=== PATIENT | female | born 2000 | race Caucasian/White ===

== ENCOUNTER 2021-08-10 14:50 | Emergency (ER) | payer OTHER, SELFPAY ==
[2021-08-10 14:55] VITALS: BP 142/87; PULSE 83; RESP 17; TEMP 36.7; O2SAT 98; BMI 34.2
--- NOTE | 2021-08-10 15:25 | ED.URI ---
HPI - URI/Sore Throat <Dilip Hewitt PA-C - Last Filed: 08/10/21 16:19> General Chief Complaint: Upper Respiratory Symptoms Stated Complaint: Needs COVID Test, Exposure Time Seen by Provider: 08/10/21 15:02 Source: patient Mode of arrival: Ambulatory History of Present Illness HPI Narrative: Caprice presents today with her roommate for symptoms of sore throat, runny nose, cough that started 2-3 days ago. She had a positive contact with an individual with COVID a few days prior to symptom onset. She is vaccinated against COVID. She denies any known medical problems. She denies any chest pain, shortness of breath or any other acute concerns or complaints at this time. Related Data Allergies Allergy/AdvReac Type Severity Reaction Status Date / Time No Known Drug Allergies Allergy Verified 08/10/21 15:11 Review of Systems <TANMAY Costa Last Filed: 08/10/21 16:19> Review of Systems Narrative: As per HPI Patient History <TANMAY Costa Last Filed: 08/10/21 16:19> Social History Smoking Status: Never smoker Smoking Status: Never smoker Substance Use Type: does not use Exam <TANMAY Costa Last Filed: 08/10/21 16:19> Narrative Exam Narrative: Exam Narrative: Const General: cooperative, healthy appearing, comfortable, no acute distress, well developed and well groomed Nutritional Appearance: average body habitus Orientation: alert and oriented x3 HENMT Head: normal to inspection and atraumatic Ears: hearing grossly normal bilaterally Nose: external nose normal and nares normal Face and sinus: normal facial exam Neck Neck: normal visual inspection and supple Resp Effort & Inspection: normal respiratory effort, able to speak in complete sentences, no audible wheezes, not labored, no nasal flaring and no respiratory distress Neuro General: alert, oriented x3, gait normal, tone normal and moves all extremities Cognition: normal cognition Speech: speech normal Gait: normal gait Psych Appearance: grossly normal and well kempt Mental Status: mental status grossly normal Speech and Movement: speech and movement normal Mood: congruent mood Affect: normal affect Initial Vital Signs Initial Vital Signs: Vital Signs Temperature 98.1 F 08/10/21 14:55 Pulse Rate 83 08/10/21 14:55 Respiratory Rate 17 08/10/21 14:55 Blood Pressure 142/87 H 08/10/21 14:55 Pulse Oximetry 98 08/10/21 14:55 <Nancy Perla DO - Last Filed: 08/11/21 07:47> Initial Vital Signs Initial Vital Signs: Vital Signs Temperature 98.1 F 08/10/21 14:55 Pulse Rate 83 08/10/21 14:55 Respiratory Rate 17 08/10/21 14:55 Blood Pressure 142/87 H 08/10/21 14:55 Pulse Oximetry 98 08/10/21 14:55 Course <Dilip Hewitt PA-C - Last Filed: 08/10/21 16:19> Orders Ordered: ED Orders 08/10/21 14:58 COVID19 -Nasal swab/Pre-Proc Stat Vital Signs Vital signs: Vital Signs - 8 hr 08/10/21 14:55 Temperature 98.1 F Pulse Rate 83 Respiratory Rate 17 Blood Pressure 142/87 H Pulse Oximetry 98 <DO Toni Valerio Last Filed: 08/11/21 07:47> Orders Ordered: ED Orders 08/10/21 14:58 COVID19 -Nasal swab/Pre-Proc Stat Vital Signs Vital signs: Vital Signs - 8 hr 08/10/21 14:55 Temperature 98.1 F Pulse Rate 83 Respiratory Rate 17 Blood Pressure 142/87 H Pulse Oximetry 98 MDM - URI/Sore Throat <TANMAY Costa Last Filed: 08/10/21 16:19> Lab Data Labs: Lab Results 08/10/21 Range/Units 14:58 SARS-CoV-2 (PCR) Negative (Negative) MDM Narrative Medical decision making narrative: Patient is a young, vaccinated otherwise healthy individual that is positive for COVID. Recommend home isolation at this time and [id number] medications as needed. Return precautions were discussed and patient verbalizes understanding and agreement to the plan. <Nancy Perla DO - Last Filed: 08/11/21 07:47> Lab Data Labs: Lab Results 08/10/21 Range/Units 14:58 SARS-CoV-2 (PCR) Negative (Negative) Discharge Plan Departure Patient Disposition: Home Clinical Impression: Upper respiratory infection, Contact with and (suspected) exposure to covid-19 Instructions: DI for COVID-19 (Suspected or Confirmed ) Activity Restrictions/Additional Instructions: It was nice to me to this afternoon. Please go home and self isolate, following the CDC's guidelines for isolation. Use [id number] medications as needed to help with symptoms. Please return if you develop chest pain, shortness of breath, or have decreased oxygen saturation on room air below 93-94%. Thank you Dilip Hewitt PA-C Referrals: Chu Garcia [Primary Care Provider] - <Nancy Perla DO - Last Filed: 08/11/21 07:47> Cosign ED Attending Neetuature Attestation: I was immediately available in the department for consultation. Documentation has been reviewed.
[2021-08-10 15:33] LABS: COVID19 -Nasal RAPID Negative (Negative)
== END 2021-08-10 15:53 | disposition home or self-care (01) ==
PROVIDERS: Emergency Medicine; Emergency Provider Physician Assistant; PCP Student in an Organized Health Care Education/Training Program
DX: J06.9 Acute upper respiratory infection, unspecified (principal); Z20.822 Contact with and (suspected) exposure to COVID-19
CPT/HCPCS: 87635; 99281; C9803

== ENCOUNTER 2021-08-12 08:00 | Emergency (ER) | payer OTHER, SELFPAY ==
--- NOTE | 2021-08-12 08:24 | ED_ITS ---
HPI - URI/Sore Throat General Chief Complaint: Upper Respiratory Symptoms Stated Complaint: Cough, sore throat, congestion, headache, SOB Time Seen by Provider: 08/12/21 08:05 Source: patient and old records reviewed Mode of arrival: Ambulatory Limitations: no limitations History of Present Illness HPI Narrative: This is a 20-year-old female comes in with cough sore throat, nasal congestion, headache occasional shortness of breath. Patient states she has had 4 days of symptoms. She has been afebrile. She has not had loss of taste or smell. She denies any chest pain. No nausea or vomiting. No diarrhea constipation. No urinary symptoms. Patient is vaccinated for coronavirus. She has had contacted with potential exposure. She was seen here on the . She tested positive on rapid swab but was suspected to still have coronavirus and asked to quarantine. She attempted to do so and her [employer] command told her she had to come to work if she was negative. She came to work today and they noted her symptoms and then sent her and told her she had to be retested. Patient is otherwise healthy. No surgical history. No known drug allergies. No tobacco use. Related Data Allergies Allergy/AdvReac Type Severity Reaction Status Date / Time No Known Drug Allergies Allergy Verified 08/10/21 15:11 Review of Systems Review of Systems ROS Unobtainable: All systems reviewed & are unremarkable except as noted in HPI and below Patient History Social History Smoking Status: Never smoker Smoking Status: Never smoker Substance Use Type: does not use Exam Narrative Exam Narrative: GEN: well nourished, well appearing female, alert and oriented x 3, patient appears to be in mild distress. HEENT: Atraumatic, pupils are equal round reactive to light, extraocular movements are intact. HEART: Regular rate and rhythm without murmur, clicks, rubs. LUNGS:Lungs clear to auscultation, no wheezes, rales, crackles, chest moves symmetrically ABD:bowel sounds normal, soft, non-tender, no guarding, rebound, rigidity, no masses noted, no hepatosplenomegaly :No CVA tenderness MSCL: full range of motion, normal gait NEURO:CN 2-12 intact, sensation normal Initial Vital Signs Initial Vital Signs: Vital Signs Pulse Rate 89 08/12/21 08:26 Respiratory Rate 18 08/12/21 08:26 Blood Pressure 121/68 08/12/21 08:26 Pulse Oximetry 99 08/12/21 08:26 Course Orders Ordered: ED Orders 08/12/21 08:16 COVID19 - ADMIT ([employer] swab/PCR) Stat MDM - URI/Sore Throat Lab Data Labs: Lab Results 08/12/21 Range/Units 08:31 SARS-CoV-2 (PCR) Positive H (Negative) MDM Narrative Medical decision making narrative: This is a 20-year-old female who was seen the 8th with a negative COVID test but suspected COVID who was told to quarantine. Her work at the [employer] required her to come she has a negative test. When she arrived they realize she appeared ill and sent her here to be retested. Patient's test today is positive. She was told to continue to quarantine. Patient has been very polite and helpful throughout her stay. Discharge Plan Departure Patient Disposition: Home Clinical Impression: COVID-19 virus infection Instructions: DI for COVID-19 (Suspected or Confirmed ) Activity Restrictions/Additional Instructions: *You have been diagnosed with coronavirus. Your test today is positive. If you wish you may obtain a pulse oximeter for use at home to monitor. Please return to the ER if your pulse oximeter shows an O2 saturation less than 94%. *What to do: * per recommendations from the CDC and the [facility] Department of Health * stay home except to get medical care. Restrict activities outside your home, except for getting medical care. Do not go to work, school, or public areas. Avoid using public transportation, ride sharing, or taxis. * separate yourself from other people in your home. * call ahead before visiting your doctor * Wear a face mask * Cover your coughs and sneezes * Clean your hands often * Avoid sharing household items * Clean all high-touch services every day * Monitor your symptoms and seek prompt medical attention if your illness is worsening, particularly with difficulty in breathing. Discussed continuing home isolation * for individuals with symptoms who are confirmed or suspected cases of COVID-19 and are directed to care for themselves at home, discontinue home isolation under the following conditions: 1. At least 72 hours have passed since recovery, defined as resolution of fever without the use of fever reducing medications, and improvement in respiratory symptoms (cough, shortness of breath) AND, 2. At least 7 days have passed since symptoms 1st appeared Individuals with laboratory confirmed COVID-19 who have not had any symptoms may discontinue home isolation when at least 7 days have passed since the date of their 1st COVID-19 diagnostic test and have had no subsequent illness Referrals: Chu Garcia [Primary Care Provider] -
[2021-08-12 08:26] VITALS: BP 121/68; PULSE 89; RESP 18; O2SAT 99; BMI 22.6
[2021-08-12 09:25] LABS: COVID19 - ADMIT (NP swab/PCR) POSITIVE (Negative)
[2021-08-12 09:44] VITALS: BP 122/78; PULSE 80; RESP 18; O2SAT 98
== END 2021-08-12 09:45 | disposition home or self-care (01) ==
PROVIDERS: Emergency Provider Emergency Medicine; PCP Student in an Organized Health Care Education/Training Program
DX: U07.1 COVID-19 (principal)
CPT/HCPCS: 87635; 99281; 99282; C9803